=== PATIENT | female | born 1960 | race Caucasian/White ===

== ENCOUNTER 2020-07-05 12:34 | Outpatient (CLI) | payer BC, SELFPAY ==
--- NOTE | 2020-07-05 12:56 | MM_ITS ---
WS: [id number] BILATERAL DIGITAL SCREENING MAMMOGRAPHY WITH CAD CLINICAL INFORMATION: SCREEN HISTORY: Screening mammogram. No current complaints. COMPARISON: [id number] TECHNIQUE: Bilateral CC and MLO views. FINDINGS: Scattered fibroglandular densities bilaterally. No suspicious focal mass, asymmetry, calcifications, or architectural distortion. No evidence of malignancy. Stable intramammary lymph node left posterior breast. A few stable punctate calcifications left breast. Vascular calcification. MM/[id number] IMPRESSION: BI-RADS: 2-Benign FOLLOW UP: 1 Year Follow-up Recommend return to annual screening mammography.
== END 2020-07-05 12:35 | disposition home or self-care (01) ==
LOC: RADSHAW 12:37
PROVIDERS: PCP Nurse Practitioner Family; Visit Provider Nurse Practitioner Family
DX: Z12.31 Encounter for screening mammogram for malignant neoplasm of breast (principal)
CPT/HCPCS: 77067

== ENCOUNTER → 2021-07-11 09:03 | Outpatient (BNVA) | payer BC, SELFPAY | PROVIDERS: PCP Nurse Practitioner Family; Visit Provider Nurse Practitioner Family | DX: Z13.220 Encounter for screening for lipoid disorders (principal); I10 Essential (primary) hypertension; Z13.29 Encounter for screening for other suspected endocrine disorder | CPT/HCPCS: 80053; 80061; 84443 ==

== ENCOUNTER → 2021-07-31 08:12 | Outpatient (BNVA) | payer BC, SELFPAY | PROVIDERS: PCP Nurse Practitioner Family; Visit Provider Nurse Practitioner Family | DX: R74.8 Abnormal levels of other serum enzymes (principal) | CPT/HCPCS: 80076 ==

== ENCOUNTER 2021-08-18 14:47 | Outpatient (CLI) | payer BC, SELFPAY ==
--- NOTE | 2021-08-18 15:15 | XR_ITS ---
WS: [id number] SCREENING DEXA SCAN [facility] CLINICAL INFORMATION: Z13.820 - Encounter for screening for osteoporosis COMPARISON: None. FINDINGS: The L1-L4 bone mineral density measures 1.216 g/cm2. This corresponds to a T score score of 0.3 and Z score of 0.5. Left femoral neck bone mineral density measures 1.050 g/cm2. This corresponds to a T score of 0.3 and Z score of 0.5. Right femoral neck bone mineral density measures 1.037 g/cm2. This corresponds to a T score 0.2of and Z score of 0.4. Mean femoral neck bone mineral density measures 1.043 g/cm2. This corresponds to a T score of 0.3 and Z score of 0.5. XR/XR DEXA axial skeleton* [id number] IMPRESSION: Normal bone mineralization. Patient's FRAX calculated 10 year probability for major osteoporotic fracture i s 11.2 % and osteoporotic hip fracture is 0.5%.
== END 2021-08-18 14:48 | disposition home or self-care (01) ==
PROVIDERS: PCP Nurse Practitioner Family; Visit Provider Nurse Practitioner Family
DX: Z13.820 Encounter for screening for osteoporosis (principal); R29.890 Loss of height
CPT/HCPCS: 77080

== ENCOUNTER 2021-09-03 13:15 | Outpatient (CLI) | payer BC, SELFPAY ==
--- NOTE | 2021-09-03 13:30 | MM_ITS ---
WS: [id number] Exam: [place] [id number] Date/Time of Exam: 09/03/2021 1:27 PM Reason For Exam: Z12.31 - Encounter for screening mammogram for malignant ... VIEWS: MLO and CC views both breasts. Comparison made with prior exam of 07/05/2020 and 11/12/2014.. Findings: A new 3 mm nodule is noted in the medial left breast at about the 7:00 position. Also noted are group ed punctate microcalcifications in the posterior upper medial quadrant of the left breast. There are no new finding in the right breast. Scattered fibroglandular densities MM/[place] [id number] Impression: BI-RADS: 0-Incomplete: Need additional imaging evaluation FOLLOW-UP: Need Additional ImagingMagnification views of the left breast in the CC, MLO and 90 degree lateral projection would be recommended for further work up. Also regional ultrasound involving the new 3 mm nodule in the medial left b reast at the 7:00 position would be indicated. This mammogram was also analyzed by the Computer Aided Detection System [employer]2 Imag e Intr[employer]et Specialist.
== END 2021-09-03 13:16 | disposition home or self-care (01) ==
LOC: RADSHAW 13:20
PROVIDERS: PCP Nurse Practitioner Family; Visit Provider Nurse Practitioner Family
DX: Z12.31 Encounter for screening mammogram for malignant neoplasm of breast (principal)
CPT/HCPCS: 77067

== ENCOUNTER 2021-09-18 07:44 | Outpatient (CLI) | payer BC, SELFPAY ==
--- NOTE | 2021-09-18 08:00 | US_ITS ---
WS: [id number] RIGHT UPPER QUADRANT ULTRASOUND HISTORY: R74.8 - Abnormal levels of other serum enzymes COMPARISON: None available. Liver: 19.0 cm in length. Liver is enlarged and of variable echogenicity. There is a focal area of de creased echogenicity which is probably in the LEFT lobe anteriorly measuring 1.8 x 1.2 x 2.0 cm. Gallbladder: Normally distended gallbladder with no stones or wall thickening. CBD: 0.5 cm Pancreas: Tail is obscured. Body and head are negative. Right kidney: 9.6 cm in length. Normal size and echogenicity. No hydronephrosis or mass. Aorta and IVC: Unremarkable abdominal aorta and IVC. No ascites. US/US liver [id number] IMPRESSION: 1. Technically limited evaluation of the RIGHT upper quadrant. 2. Enlarged liver of variable echogenicity in a hypoechoic nodule. Recommend f ollow-up CT abdomen and pelvis with IV and oral contrast for further evaluation . This may be an area of hepatic steatosis or sparing. Metastatic disease needs to be excluded. 3. Negative gallbladder.
== END 2021-09-18 07:45 | disposition home or self-care (01) ==
LOC: RAD 07:46
PROVIDERS: PCP Nurse Practitioner Family; Visit Provider Nurse Practitioner Family
DX: R74.8 Abnormal levels of other serum enzymes (principal); R16.0 Hepatomegaly, not elsewhere classified
CPT/HCPCS: 76705; 93976

== ENCOUNTER 2021-10-14 12:42 | Outpatient (CLI) | payer BC, SELFPAY ==
--- NOTE | 2021-10-14 14:00 | CT_ITS ---
WS: [id number] CT ABDOMEN PELVIS TECHNIQUE: Contrast-enhanced CT of the abdomen and pelvis with coronal and sagittal reformatted image s. CLINICAL INFORMATION: R16.0 - Hepatomegaly, not elsewhere classified COMPARISON: Ultrasound September 18, 2021 DLP: 1136.[address] scans at [facility] use at least one of these dose optimization techniques: automated e xposure control; mA and/or kV adjustment per patient size (includes targeted exams where dose is matc hed to clinical indication); or iterative reconstruction. FINDINGS: Diffuse fatty infiltration of the liver. Mild hepatomegaly. No focal hepatic lesion corresponding to the ultrasound findings. No visualized hepatic lesions. Normal portal vein and splenic vein. Moderate esophageal hiatal hernia. Gallbladder is contracted. Lung bases are well aerated. Adrenal glands are normal. Normal renal parenchymal enhancement. No hydronephrosis. Normal spleen. Normal caliber abdom inal aorta. Mild aortic calcification. No evidence of small or large bowel obstruction. Urine distended bladder. Bulky fibroid uterus. Mild disc bulging L4-L5 and L5-S1. CT/CT abdomen pelvis w con* [id number] IMPRESSION: 1. Diffuse fatty infiltration liver. Mild hepatomegaly. No focal hepatic lesio n corresponding to the ultrasound findings. No visualized hepatic lesions. 2. Gallbladder is contracted. 3. Bulky fibroid uterus. 4. Moderate esophageal hiatal hernia.
[2021-10-14] MEDS: iohexol 300 mg/mL 100 mL Btl IV (15:42)
[2021-10-14] MEDS: iohexol 300 mg/mL 50 mL Btl PO (15:43)
== END 2021-10-14 12:43 | disposition home or self-care (01) ==
PROVIDERS: PCP Nurse Practitioner Family; Visit Provider Nurse Practitioner Family
DX: R16.0 Hepatomegaly, not elsewhere classified (principal); K76.0 Fatty (change of) liver, not elsewhere classified; D25.9 Leiomyoma of uterus, unspecified; K44.9 Diaphragmatic hernia without obstruction or gangrene
CPT/HCPCS: 74177; Q9967

== ENCOUNTER → 2021-10-20 11:12 | Outpatient (BNVA) | payer BC, SELFPAY | PROVIDERS: PCP Nurse Practitioner Family; Visit Provider Nurse Practitioner Family | DX: Z20.822 Contact with and (suspected) exposure to COVID-19 (principal) | CPT/HCPCS: 87635 ==

== ENCOUNTER → 2021-11-28 00:01 | Outpatient (BNVA) | payer BC, SELFPAY | PROVIDERS: PCP Registered Nurse; Visit Provider Registered Nurse | DX: Z11.52 Encounter for screening for COVID-19 (principal); Z20.822 Contact with and (suspected) exposure to COVID-19 | CPT/HCPCS: 87635 ==

== ENCOUNTER → 2022-11-23 15:25 | Outpatient (BNVA) | payer BC, SELFPAY | PROVIDERS: PCP Registered Nurse; Visit Provider Registered Nurse | DX: R05.9 Cough, unspecified (principal) | CPT/HCPCS: 87400 ==

== ENCOUNTER 2023-03-15 09:22 | Outpatient (CLI) | payer BC, SELFPAY ==
--- NOTE | 2023-03-15 09:35 | MM_ITS ---
WS: [id number] BILATERAL SCREENING DIGITAL TOMOSYNTHESIS MAMMOGRAM WITH CAD HISTORY: Screening. COMPARISON: 09/03/2021 and 07/05/2020 Bilateral CC and MLO views with tomosynthesis and synthetic mammography submitted. Computer aided det ection analyzed. Breast composition: There are scattered areas of fibroglandular density. No suspicious masses, microc alcifications or architectural distortion. Small clusters of calcifications within each breast are un changed significantly since 2020. MM/[place] [id number] IMPRESSION: BI-RADS: 2-Benign FOLLOW UP: 1 Year Follow-up
== END 2023-03-15 09:23 | disposition home or self-care (01) ==
PROVIDERS: PCP Registered Nurse; Visit Provider Registered Nurse
DX: Z12.31 Encounter for screening mammogram for malignant neoplasm of breast (principal)
CPT/HCPCS: 77063; 77067; 80053; 80061; 82306; 82607; 85025

== ENCOUNTER 2024-09-22 13:00 | Outpatient (CLI) | payer BC, SELFPAY ==
--- NOTE | 2024-09-22 12:44 | MM_ITS ---
WS: [id number] Bilateral screening 3D tomosynthesis digital mammogram, 09/22/2024 12:49 PM Clinical Data: SCREENING Comparison: 03/15/2023, 09/03/2021, 07/05/2020, 11/12/2014. Findings: No spiculated masses or clustered calcifications are seen. There are no secondary signs of carcinoma . There are small benign calcifications in both breasts. MM/MM scr BI tomosynthesis [id number] Impression: Negative bilateral mammogram unchanged. Recommend annual screening mammograms. BIRADS: 1 - Negative. FOLLOW UP: 1 Year Follow-up DENSITY: There are scattered areas of fibroglandular density. The CAD traffic checker was used
== END 2024-09-22 13:01 | disposition home or self-care (01) ==
PROVIDERS: PCP Registered Nurse; Visit Provider Registered Nurse
DX: Z12.31 Encounter for screening mammogram for malignant neoplasm of breast (principal); R92.1 Mammographic calcification found on diagnostic imaging of breast
CPT/HCPCS: 77063; 77067

== ENCOUNTER → 2025-06-06 11:10 | Outpatient (BNVA) | payer MEDICARE, SELFPAY | PROVIDERS: PCP Registered Nurse; Visit Provider Registered Nurse | DX: Z13.6 Encounter for screening for cardiovascular disorders (principal) | CPT/HCPCS: 80053; 80061; 85025 ==